=== PATIENT | female | born 1980 | race Caucasian/White ===

== ENCOUNTER 2022-04-07 14:08 | Inpatient (IN) ==
--- NOTE | 2022-04-07 14:39 | Emergency Department Note ---
Impression & Plan Lower back pain, Thrombocytopenia, Nausea & vomiting ED Provider Note NAME: DANA CAST AGE: 42 SEX: F : 1980 ARRIVES VIA: Ambulance INFORMANT: Patient, ED PROVIDER(S): Dandy Chapin MD CHIEF COMPLAINT: Back pain MEDICAL DECISION MAKING: Patient presents due to concern for back pain. The patient did have CT of the lumbar spine and IV was placed and patient was ordered IV Solu-Medrol Toradol and morphine. The patient upon reassessment did not have significant improvement in symptoms with the patient was ordered 1 of IV Dilaudid. The patient did have blood work completed. Patient does not have any significant red flag signs for cauda equina. An MRI of the lumbar spine was ordered. There is no current MRI team available and given this delay I did discuss with the patient that we could keep the patient for pain management but if the patient was able to get up and walk with comfort I thought this would be reasonable at this time. Patient does not have any evidence of cauda equina or weakness on exam. Patient was unable to get up and out of bed. Given this concern I did speak with the on-call hospitalist Dr. De La Vega and the patient was admitted to the medicine service. Patient has a white count of 11 with a normal H&H. Platelet count with mild thrombocytopenia 109. Kidney function is unremarkable but with prerenal azotemia. The patient did receive IV fluids. COVID-negative. Prior /Outside records reviewed: None Differential diagnosis: Musculoskeletal, disc herniation, fracture, metastatic disease, cord compression, discitis, sciatica, cauda equina, infection, aortic disease, renal colic, gastrointestinal, as well as other pathologies. Diagnostics, as interpreted by me: ECG: None Cardiac monitoring: An order was placed for continuous cardiac monitoring. The monitor shows a rate of 88 with sinus rhythm. Patient was placed on pulse oximetry Medical decision rules: None Imaging studies: See below HPI: Patient presents due to concern for back pain. The patient states that he has had it for approximately 3 days and describes it is in the lower lumbar and left paraspinal area with radiation down the left leg. The patient describes it as sharp and occasionally burning. Patient denies any issues with bowel or bladder incontinence or retention no saddle anesthesia. Patient states that she has been taking [id number]-[id number] medications including ibuprofen and Tylenol. The patient does take Tylenol this morning but did not have improvement in symptoms. The patient has had associated nausea and vomiting today secondary to the pain. Patient denies any inciting events and denies any recent overuse twisting turning feeling as though she had a pop or other cause. The patient denies any dysuria hematuria. No blood in the stools. PAST MEDICAL HISTORY: See Below PAST SURGICAL HISTORY: See Below SOCIAL HISTORY: See Below HOME MEDICATIONS: See Below ALLERGIES: See Below VITALS: See Below PHYSICAL EXAMINATION: GENERAL: NAD, wearing a mask, non-toxic. Wearing glasses. EYE EXAM: Normal conjunctiva. PERRL, no anisocoria and EOM's grossly intact w/o pain. NECK: Supple, no nuchal rigidity, no adenopathy, non-tender. No signs of meningismus. FROM of the neck with good chin to chest and neck extension. No stridor. LUNGS: Clear to auscultation. Normal chest wall mechanics. HEART: NSR, no MRG. ABDOMEN: Abdomen soft, non-tender, normo-active bowel sounds, no masses, no rebound or guarding. BACK: Mild left-sided and midline lumbar discomfort. SKIN: No rashes and no bruising. UPPER EXTREMITIES: Upper extremities are grossly normal. LOWER EXTREMITIES: Grossly normal, no edema. Positive straight leg raise left lower extremity. NEURO EXAM: A&O x3, cranial nerves II-XII grossly intact, normal speech, moves all 4 extremities. Past Med/Surg History Medical History Inflammatory arthritis Irritable bowel Lower back pain Surgical History No pertinent past surgical history Social History Smoking Status: Never smoker Preferred Language: Spanish Feels Safe at Home: Yes Allergies Allergies Allergy/AdvReac Type Severity Reaction Status Date / Time amoxicillin Allergy Intermediate RASH/VOMITI Verified 04/07/22 17:34 NG ciprofloxacin Allergy Intermediate Rash Verified 04/07/22 17:34 sulfamethoxazole Allergy Intermediate Rash Verified 04/07/22 17:34 [From Bactrim] trimethoprim [From Bactrim] Allergy Intermediate Rash Verified 04/07/22 17:34 Home Meds Home Medications Medication Instructions Recorded Confirmed cholecalciferol (vitamin D3) 50 2,000 unit PO DAILY 04/07/22 04/07/22 mcg (2,000 unit) tablet (Vitamin D3) cyclobenzaprine 10 mg tablet 10 mg PO TID PRN MUSCLE SPASMS 04/07/22 04/07/22 docusate sodium 100 mg capsule 300 mg PO BID 04/07/22 04/07/22 (Stool Softener) estradiol 0.01% (0.1 mg/gram) 1 appful vaginal 2XWK 04/07/22 04/07/22 vaginal cream folic acid 1 mg tablet 1 mg PO DAILY 04/07/22 04/07/22 gabapentin 300 mg capsule 300 mg PO TID 04/07/22 04/07/22 meloxicam 7.5 mg tablet 7.5 mg PO DAILY 04/07/22 04/07/22 methotrexate sodium 2.5 mg tablet See Rx Instructions .Route .COMPLEX 04/07/22 04/07/22 pantoprazole 40 mg tablet,delayed 40 mg PO QAM 04/07/22 04/07/22 release Results & Data (ED) Vital Signs Vital Signs - 24 hr 04/07/22 14:34 04/07/22 15:50 04/07/22 17:53 Temperature 36.9 C Temperature Source Oral Pulse Rate 104 H Pulse Rate [Finger] 87 100 H Pulse Rhythm [Finger] Regular Regular Pulse Strength [Finger] Normal Normal Respiratory Rate 16 20 18 Respiratory Effort / Characteristics Non-Labored Spontaneous Non-Labored Non-Labored Respiratory Depth Normal Normal Normal Respiratory Pattern Regular Regular Regular Blood Pressure 107/64 Blood Pressure [Right Arm] 110/68 119/66 Blood Pressure Mean 78 Blood Pressure Mean [Right Arm] 82 83 Blood Pressure Position Lying Pulse Oximetry 98 98 94 Oxygen Delivery Method Room Air Room Air Room Air Sepsis Recent Fever Within 48 Hours No Sepsis New/Unexplained Change in Mental Status No Sepsis Action Taken by Nursing No Action Required 04/07/22 14:54 Temperature Temperature Source Pulse Rate Pulse Rate [Finger] Pulse Rhythm [Finger] Pulse Strength [Finger] Respiratory Rate Respiratory Effort / Characteristics Respiratory Depth Respiratory Pattern Blood Pressure Blood Pressure [Right Arm] Blood Pressure Mean Blood Pressure Mean [Right Arm] Blood Pressure Position Pulse Oximetry 96 Oxygen Delivery Method Room Air Sepsis Recent Fever Within 48 Hours Sepsis New/Unexplained Change in Mental Status Sepsis Action Taken by Residential Medications Current Medication List: was personally reviewed by me Laboratory Data Attestation: I reviewed the patient's lab results. Result diagrams: 04/07/22 17:51 04/07/22 18:56 Lab Results 04/07/22 04/07/22 04/07/22 Range/Units 17:51 17:51 17:51 WBC 11.63 H (4.8-10.8) K/ul RBC 4.98 (3.93-5.22) M/uL Hgb 15.5 (12.0-16.0) g/dl Hct 43.9 (34.1-44.9) % MCV 88.2 (80.0-100.0) fL MCH 31.1 (25.0-34.0) pg MCHC 35.3 (32.0-36.0) g/dL RDW Std Deviation 40.4 (36.4-46.3) fL RDW Coeff of Clarissa 12.6 (11.5-14.5) % Plt Count 109 L (130-400) K/uL MPV 10.9 (9.4-12.3) fL Immature Gran % (Auto) 0.3 % Neut % (Auto) 94.8 % Lymph % (Auto) 3.7 % Bent % (Auto) 1.0 % Eos % (Auto) 0.0 % Baso % (Auto) 0.2 % Neut # (Auto) 11.03 H (1.4-6.5) K/uL Lymph # (Auto) 0.43 L (1.2-3.4) K/uL Bent # (Auto) 0.12 L (0.24-0.82) K/uL Eos # (Auto) 0.00 (0-0.50) K/uL Baso # (Auto) 0.02 (0-0.2) K/uL Immature Gran # (Auto) 0.03 H (0.00-0.02) K/uL Sodium TNP Potassium TNP Chloride 105 (98-107) mmol/L Carbon Dioxide 26 (21-32) mmol/L Anion Gap TNP BUN 13 (6-23) mg/dl Creatinine 0.49 L (0.6-1.2) mg/dl Est Cr Clr Drug Dosing 160.2 ml/min Est GFR ( Amer) 140.3 ml/min Est GFR (Non-Af Amer) 121.0 ml/min BUN/Creatinine Ratio 26.5 H (10-20) Glucose 114 H (70-99(Fasting)) mg/dl Calcium 9.6 (8.5-10.1) mg/dl SARS-CoV-2, RNA, NAAT NEGATIVE (NEGATIVE) 04/07/22 Range/Units 18:56 WBC (4.8-10.8) K/ul RBC (3.93-5.22) M/uL Hgb (12.0-16.0) g/dl Hct (34.1-44.9) % MCV (80.0-100.0) fL MCH (25.0-34.0) pg MCHC (32.0-36.0) g/dL RDW Std Deviation (36.4-46.3) fL RDW Coeff of Clarissa (11.5-14.5) % Plt Count (130-400) K/uL MPV (9.4-12.3) fL Immature Gran % (Auto) % Neut % (Auto) % Lymph % (Auto) % Bent % (Auto) % Eos % (Auto) % Baso % (Auto) % Neut # (Auto) (1.4-6.5) K/uL Lymph # (Auto) (1.2-3.4) K/uL Bent # (Auto) (0.24-0.82) K/uL Eos # (Auto) (0-0.50) K/uL Baso # (Auto) (0-0.2) K/uL Immature Gran # (Auto) (0.00-0.02) K/uL Sodium 140 Potassium 3.9 Chloride (98-107) mmol/L Carbon Dioxide (21-32) mmol/L Anion Gap BUN (6-23) mg/dl Creatinine (0.6-1.2) mg/dl Est Cr Clr Drug Dosing ml/min Est GFR ( Amer) ml/min Est GFR (Non-Af Amer) ml/min BUN/Creatinine Ratio (10-20) Glucose (70-99(Fasting)) mg/dl Calcium (8.5-10.1) mg/dl SARS-CoV-2, RNA, NAAT (NEGATIVE) Administered Medications Discontinued Medications Hydromorphone HCl (Hydromorphone Inj 1 Mg/Ml Syringe) 1 mg IV NOW STA Stop: 04/07/22 17:30 Last Admin: 04/07/22 17:46 Dose: 1 mg Documented By: LEONORA Sodium Chloride (Nss 1000ml) 1,000 mls @ 999 mls/hr IV .Q1H1M ONE Stop: 04/07/22 15:55 Last Infusion: 04/07/22 16:47 Dose: 0 mls/hr Documented By: Admin: 04/07/22 15:21 Dose: 999 mls/hr Documented By: OAM Ketorolac Tromethamine (Ketorolac Tromethamine 15 Mg/Ml Vial) 10 mg IV ONE STA Stop: 04/07/22 14:55 Last Admin: 04/07/22 15:21 Dose: 10 mg Documented By: OAHeydi Methylprednisolone (Methylprednisolone 125 Mg/2 Ml Vial) 125 mg IV NOW STA Stop: 04/07/22 14:55 Last Admin: 04/07/22 15:21 Dose: 125 mg Documented By: OAM Ondansetron HCl (Ondansetron Inj 2 Mg/Ml 2 Ml Vial) 4 mg IV NOW STA Stop: 04/07/22 14:55 Last Admin: 04/07/22 15:21 Dose: 4 mg Documented By: LEONORA Imaging Data Radiologist's Impression: Lumbar Spine CT 04/07/22 14:[address] DOSE: 640.55 mGy.cm HISTORY: Low back pain. Left-sided sciatica. TECHNIQUE: Multiaxial CT images of the lumbar spine were performed and reformatted in the sagittal and coronal plane without the use of contrast. A dose lowering technique was utilized adhering to the principles of ALARA. COMPARISON: None. FINDINGS: No fracture or subluxation within the lumbar spine. Mild disc space narrowing at L5-S1. The sacrum appears intact. Small broad-based posterior disc bulge at L5-S1 without significant central canal narrowing. Paravertebral soft tissues are unremarkable. IMPRESSION: 1. No fractures within the lumbar spine. 2. Mild degenerative disc disease at L5-S1 without significant central canal narrowing. ACT 112: Negative or not required by law. Electronically signed by: Campos Pena M.D. 04/07/2022 3:50 PM Discharge Plan Visit Data Chief Complaint: Back Injury/Pain ED Provider: Dandy Chapin Discharge Problem: Lower back pain, Thrombocytopenia, Nausea & vomiting Patient Disposition: Admitted As Inpatient Discharge Instructions Interventions: ED Discharge Assessment Last Done: 04/07/22 19:42
[2022-04-07] MEDS ORDERED: KETOROLAC TROMETHAMINE 15 MG/ML VIAL IV STA (14:54)
[2022-04-07] MEDS ORDERED: ONDANSETRON INJ 2 MG/ML 2 ML VIAL IV STA (14:54)
[2022-04-07] MEDS ORDERED: methylPREDNISolone 125 MG/2 ML VIAL IV STA (14:54)
[2022-04-07] MEDS ORDERED: SODIUM CHLORIDE 0.9% 1000ML 1,000 ML IV ONE (14:55)
--- NOTE | 2022-04-07 15:53 | CT Scan Report ---
LUMBAR SPINE CT CT DOSE: 640.55 mGy.cm HISTORY: Low back pain. Left-sided sciatica. TECHNIQUE: Multiaxial CT images of the lumbar spine were performed and reformatted in the sagittal an d coronal plane without the use of contrast. A dose lowering technique was utilized adhering to the principles of ALARA. COMPARISON: None. FINDINGS: No fracture or subluxation within the lumbar spine. Mild disc space narrowing at L5-S1. The sacrum appears intact. Small broad-based posterior disc bulge at L5-S1 without significant central c anal narrowing. Paravertebral soft tissues are unremarkable. IMPRESSION: 1. No fractures within the lumbar spine. 2. Mild degenerative disc disease at L5-S1 without significant central canal narrowing. ACT 112: Negative or not required by law. Electronically signed by: Campos Pena M.D. 04/07/2022 3:50 PM
[2022-04-07] MEDS ORDERED: HYDROmorphone INJ 1 MG/ML SYRINGE IV STA (17:29)
[2022-04-07 18:17] LABS: Hematocrit (blood only) 43.9 % (34.1-44.9); Hemoglobin 15.5 g/dl (12.0-16.0); Mean Corpuscular Hemoglobin 31.1 pg (25.0-34.0); Mean Corpuscular Hgb Conc 35.3 g/dL (32.0-36.0); Mean Corpuscular Volume 88.2 fL (80.0-100.0); Mean Platelet Volume 10.9 fL (9.4-12.3); Platelet Count 109 K/uL (130-400); RDW Coefficient of Variation 12.6 % (11.5-14.5); RDW Standard Deviation 40.4 fL (36.4-46.3); Red Blood Count 4.98 M/uL (3.93-5.22); White Blood Count 11.63 K/ul (4.8-10.8)
[2022-04-07 18:25] LABS: Basophils # (auto) 0.02 K/uL (0-0.2); Basophils % (auto) 0.2 %; Immature Granulocytes # (auto) 0.03 K/uL (0.00-0.02); Immature Granulocytes % (auto) 0.3 %; Lymphocytes # (auto) 0.43 K/uL (1.2-3.4); Lymphocytes % (auto) 3.7 %; Monocytes # (auto) 0.12 K/uL (0.24-0.82); Neutrophils # (auto) 11.03 K/uL (1.4-6.5); Neutrophils % (auto) 94.8 %
[2022-04-07 18:26] LABS: BUN Creatinine Ratio 26.5 (10-20); Blood Urea Nitrogen 13 mg/dl (6-23); Calcium 9.6 mg/dl (8.5-10.1); Carbon Dioxide 26 mmol/L (21-32); Chloride 105 mmol/L (98-107); Creatinine Clr Calc Pharmacy 160.2 ml/min; Est GFR (African American) 140.3 ml/min; Glucose 114 mg/dl (70-99(Fasting))
--- NOTE | 2022-04-07 19:13 | History & Physical Report ---
Date of Service April 07, 2022 Assessment & Plan (1) Lower back pain: Plan: Patient has lower back pain which is not completely radicular. Reportedly has a lumbar disc disease. 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 Its mostly related in her lower back it can at times radiate to her foot mostly on the lateral edge most of the time it stays in the upper leg. She is attempted to quell her pain emergency department with with little success. Her pain is definitely not reproducible with straight leg raising and has variable somatic components. She reportedly comes with a previous disc herniation at L3-4 L4-[address] scan in the emergency department showed degenerative disc disease L5-S1. She reportedly has inflammatory arthritis and thinks methotrexate weekly and sees a burial vault setter in [place]. She states that the morphine did not work but the Dilaudid was better. Allergies Allergy/AdvReac Type Severity Reaction Status Date / Time amoxicillin Allergy Intermediate RASH/VOMITI Verified 04/07/22 17:34 NG ciprofloxacin Allergy Intermediate Rash Verified 04/07/22 17:34 sulfamethoxazole Allergy Intermediate Rash Verified 04/07/22 17:34 [From Bactrim] trimethoprim [From Bactrim] Allergy Intermediate Rash Verified 04/07/22 17:34 Home Medications Medication Instructions Recorded Confirmed Type cholecalciferol (vitamin D3) 50 2,000 unit PO DAILY 04/07/22 04/07/22 History mcg (2,000 unit) tablet (Vitamin D3) cyclobenzaprine 10 mg tablet 10 mg PO TID PRN MUSCLE SPASMS 04/07/22 04/07/22 History docusate sodium 100 mg capsule 300 mg PO BID 04/07/22 04/07/22 History (Stool Softener) estradiol 0.01% (0.1 mg/gram) 1 appful vaginal 2XWK 04/07/22 04/07/22 History vaginal cream folic acid 1 mg tablet 1 mg PO DAILY 04/07/22 04/07/22 History gabapentin 300 mg capsule 300 mg PO TID 04/07/22 04/07/22 History meloxicam 7.5 mg tablet 7.5 mg PO DAILY 04/07/22 04/07/22 History methotrexate sodium 2.5 mg tablet See Rx Instructions .Route .COMPLEX 04/07/22 04/07/22 History pantoprazole 40 mg tablet,delayed 40 mg PO QAM 04/07/22 04/07/22 History release Past Med/Surg History Medical History (Updated 04/07/22 @ 19:21 by Steve De La Vega MD) Irritable bowel Lower back pain Social History Smoking Status: Never smoker Preferred Language: Filipino Feels Safe at Home: Yes Review of Systems Review of Systems: Moderate distress and fatigue no headache, no visual changes no speech or swallowing issues no chest pain, pressure or palpitations no shortness of breath, cough or wheezes no abdominal pain, nausea or vomiting, variable diarrhea & constipation no dysuria, hematuria or frequency no focal joint pain or swelling Lower back pain, mostly left-sided with occasional left-sided radiation no bruising, bleeding or rashes no focal signs of weakness or numbness or altered sensation no complaints of anxiety or depression.. Physical Exam Physical Exam: The patient appeared well nourished and normally developed. Vital signs as documented. Head exam is normocephalic atraumatic Neck is without JVD, thyromegaly, or carotid bruits. Lungs are clear to auscultation, no focal loss of breath sounds Cardiac exam, Rhythm is regular.. No murmurs, rubs or gallops. Abdominal exam reveals normal bowel sounds, soft non tender, no masses Extremities are nonedematous and both pedal pulses are present Reproducible point tenderness in the lumbar spine mostly left side chest was tenderness to the left calf Neurologic exam is alert and oriented, no focal loss of strength or sensation No pain with straight leg raising strength is 5/5 and equal bilaterally no neurological deficits Skin is without bruises or rashes Psychologically is without concerns for anxiety or depression.. Results & Data Results & Data ([facility]) Vital Signs (Past 12 Hours) Vital Signs Temp Pulse Pulse Resp BP BP Pulse Ox 04/07/22 14:54 96 04/07/22 17:53 100 H 18 119/66 94 04/07/22 15:50 87 20 110/68 98 04/07/22 14:34 98.4 F 104 H 16 107/64 98 O2 Del Method 04/07/22 14:54 Room Air 04/07/22 17:53 Room Air 04/07/22 15:50 Room Air 04/07/22 14:34 Room Air Diagnostic Findings Lumbar Spine CT 04/07/22 14:[address] DOSE: 640.55 mGy.cm HISTORY: Low back pain. Left-sided sciatica. TECHNIQUE: Multiaxial CT images of the lumbar spine were performed and reformatted in the sagittal and coronal plane without the use of contrast. A dose lowering technique was utilized adhering to the principles of ALARA. COMPARISON: None. FINDINGS: No fracture or subluxation within the lumbar spine. Mild disc space narrowing at L5-S1. The sacrum appears intact. Small broad-based posterior disc bulge at L5-S1 without significant central canal narrowing. Paravertebral soft tissues are unremarkable. IMPRESSION: 1. No fractures within the lumbar spine. 2. Mild degenerative disc disease at L5-S1 without significant central canal narrowing. ACT 112: Negative or not required by law. Electronically signed by: Campos Pena M.D. 04/07/2022 3:50 PM Code Status & VTE Plan VTE Prophylaxis Plan VTE Prophylaxis will be ordered: Yes PG Care Time/CCT Total # of Minutes Spent Total Time Spent with Patient: Total time spent is greater than 50% in coordination of care (as documented) at patient's floor/unit and/or counseling patient: Coding Level of Care Code INT OBSERVATION CARE 50M LVL 2 Diagnoses Lower back pain M54.50 Inflammatory arthritis M19.90 Irritable bowel K58.9
[2022-04-07 19:26] LABS: Potassium 3.9 mmol/L (3.5-5.1)
[2022-04-07] MEDS ORDERED: ONDANSETRON INJ 2 MG/ML 2 ML VIAL IV PRN (20:21)
[2022-04-07] MEDS ORDERED: LORazepam 2 MG/1 ML VIAL IV ONE (20:21)
[2022-04-07] MEDS ORDERED: HYDROmorphone INJ 1 MG/ML SYRINGE IV PRN (20:21)
[2022-04-07] MEDS ORDERED: ALUMINUM/MAGNESIUM SUSP 30 ML UDC PO PRN (20:21)
[2022-04-07] MEDS: LIDOCAINE 5% 1 PATCH TD SCH (20:58)
[2022-04-07] MEDS: DOCUSATE SODIUM 100 MG CAP PO SCH (20:59)
[2022-04-07] MEDS: GABAPENTIN 300 MG CAP PO SCH (20:59)
[2022-04-07] MEDS: ACETAMINOPHEN 500 MG TAB PO SCH (21:00)
[2022-04-07] MEDS: oxyCODONE HCL IR 5 MG TAB (IMMEDIATE RELEASE) PO PRN (21:04)
[2022-04-07] MEDS ORDERED: LORazepam 2 MG/1 ML VIAL ONE (23:05)
[2022-04-07] MEDS: HYDROmorphone INJ 0.5 MG/0.5 ML SYR IV PRN (23:11)
--- NOTE | 2022-04-08 08:26 | Magnetic Resonance Report ---
MRI OF THE LUMBAR SPINE WITHOUT CONTRAST CLINICAL HISTORY: Radicular pain. Low back pain radiating into left lower extremity. COMPARISON STUDY: Lumbar spine radiographs May 05, [address] April 07, 2022. TECHNIQUE: Utilizing a 1.5 Yamileth magnet and dedicated coil, multiplanar, multiecho imaging of the [facility] spine was performed without IV contrast. FINDINGS: For purposes of numbering on this exam, the L5-S1 disc space is assigned to axial and 28 of 30. Align ment of the lumbar spine is anatomic. Vertebral body heights are maintained. There is no marrow edema or marrow replacement. No intracanalicular mass or fluid collection. Conus 20 minutes at the inferio r L1 level. Paravertebral soft tissues are unremarkable. There is a small right paracentral disc prot rusion at T10-T11. L1-2: Central canal and neural foramen are patent. L2-3: Central canal and neural foramen are patent. L3-4: Central canal and neural foramen are patent. L4-5: There is a small central disc protrusion with annular tear. The central canal is patent. Neural foramen are patent. L5-S1: Note is made of a moderate size left paracentral disc extrusion which results in severe narrow ing of the left lateral recess with posterior displacement of the descending left S1 nerve root. Ther e is no significant central canal stenosis. Right neural foramen is patent. There is mild narrowing o f the left neural foramen. IMPRESSION: 1. Moderate size left paracentral disc extrusion at L5-S1 which results in severe narrowing of the le ft lateral recess with mass effect upon the descending left S1 nerve root. This could be correlated w ith left S1 radiculopathy. 2. No central canal stenosis. 3. Tiny central disc protrusion with annular tear at L4-L5. ACT 112: Negative or not required by law. Electronically signed by: Joaquín Pope M.D. 04/08/2022 8:25 AM
[2022-04-08] MEDS: oxyCODONE HCL IR 5 MG TAB (IMMEDIATE RELEASE) PO PRN ×2 (08:42→16:40)
[2022-04-08] MEDS: FOLIC ACID 1 MG TAB PO SCH (08:42)
[2022-04-08] MEDS: PANTOprazole 40 MG TAB PO SCH (08:42)
[2022-04-08] MEDS: dexAMETHasone 4 MG TAB PO SCH (08:42)
[2022-04-08] MEDS: ACETAMINOPHEN 500 MG TAB PO SCH ×3 (08:42→21:14)
[2022-04-08] MEDS: GABAPENTIN 300 MG CAP PO SCH ×3 (08:43→21:13)
[2022-04-08] MEDS: SENNA 8.6 MG TAB PO SCH (08:43)
[2022-04-08] MEDS: DOCUSATE SODIUM 100 MG CAP PO SCH ×2 (08:43→21:13)
[2022-04-08] MEDS: CHOLECALCIFEROL 1,000 UNITS 25 MCG TAB PO SCH (08:43)
[2022-04-08] MEDS: MELOXICAM 7.5 MG TAB PO SCH (08:43)
[2022-04-08] MEDS ORDERED: POLYETHYLENE (MIRALAX) 17 GM PACK PO PRN (11:11)
[2022-04-08] MEDS: HYDROmorphone INJ 0.5 MG/0.5 ML SYR IV PRN ×2 (13:18→20:23)
--- NOTE | 2022-04-08 15:27 | Orthopedic Consultation ---
Date of Consultation April 08, 2022 Assessment & Plan (1) Lumbar disc herniation with radiculopathy: Assessment L5-S1 disc herniation with fragment migrating caudally and significant displacement of the traversing S1 nerve root. Plan at this time at length discussion today with the patient and her reviewing her MRI findings and clinical presentation. She does have the options of continued medical management possible trial of epidural injections versus surgical invention. Surgery would require a lumbar laminotomy L5-S1 on the left with excision of herniated free fragments. Risk benefits pros cons alternatives were in detail. Risk include but not limited to anesthesia blindness stroke paralysis nerve damage blood loss requiring transfusion infection requiring reoperation benefits would hopefully marked improvement of radiculopathy. She does run the risk of recurrent disc herniation and I described what this would mean. At this point she is severely uncomfortable is undergone extensive course of nonoperative care in the past and would like to pursue surgical invention. We will make her n.p.o. after midnight we will hope for surgery soon as possible. History of Present Illness Reason for Consultation: Back and left leg pain Attending Physician: Leonila Burger, DO History of Present Illness This is a very pleasant 42-year-old female who presents yesterday with severe back and left leg pain. She is unable to ambulate without marked discomfort. Subsequently she came to the ER for help. She has a history of some back issues in August of this year. She had back pain with some modest left sciatica. This been managed medically with Neurontin and muscle relaxers and has been working reasonably well. She had not sought injections. She had undergone physical therapy and fortunately a few days ago the symptoms became much worse. Pain is involving the left buttock posterior thigh extending into the calf and lateral foot. Any activity creates severe pain. The only relief she gets is through IV Dilaudid. She is most comfortable lying supine. The right lower extremity is asymptomatic. She denies any loss of bowel or bladder control. Allergies Allergy/AdvReac Type Severity Reaction Status Date / Time amoxicillin Allergy Intermediate RASH/VOMITI Verified 04/07/22 17:34 NG ciprofloxacin Allergy Intermediate Rash Verified 04/07/22 17:34 sulfamethoxazole Allergy Intermediate Rash Verified 04/07/22 17:34 [From Bactrim] trimethoprim [From Bactrim] Allergy Intermediate Rash Verified 04/07/22 17:34 Home Medications Medication Instructions Recorded Confirmed Type cholecalciferol (vitamin D3) 50 2,000 unit PO DAILY 04/07/22 04/07/22 History mcg (2,000 unit) tablet (Vitamin D3) cyclobenzaprine 10 mg tablet 10 mg PO TID PRN MUSCLE SPASMS 04/07/22 04/07/22 History docusate sodium 100 mg capsule 300 mg PO BID 04/07/22 04/07/22 History (Stool Softener) estradiol 0.01% (0.1 mg/gram) 1 appful vaginal 2XWK 04/07/22 04/07/22 History vaginal cream folic acid 1 mg tablet 1 mg PO DAILY 04/07/22 04/07/22 History gabapentin 300 mg capsule 300 mg PO TID 04/07/22 04/07/22 History meloxicam 7.5 mg tablet 7.5 mg PO DAILY 04/07/22 04/07/22 History methotrexate sodium 2.5 mg tablet See Rx Instructions .Route .COMPLEX 04/07/22 04/07/22 History pantoprazole 40 mg tablet,delayed 40 mg PO QAM 04/07/22 04/07/22 History release Patient History Medical History Inflammatory arthritis Irritable bowel Lower back pain Surgical History No pertinent past surgical history Social History Smoking Status: Never smoker Hx Alcohol Use: Yes Hx Substance Use: No Preferred Language: Indian Communication Ability: Effective Field Education Director Required: No Beliefs That Will Affect Care: Jainism Jainism Beliefs: Baptist (pt denies needing any special care/diet) Current Living Situation: Spouse Feels Safe at Home: Yes Assistive Devices: Cane and Glasses Physical Exam Physical Exam: Patient is in bed. She is somewhat tearful secondary to pain. She exhibits severe tension signs with straight leg raising on the left negative on the right. She has a plus 5 out of 5 bilateral dorsiflexion extensor pollicis longus with a 4/5 left plantar flexion to 5 or 5 on the right. Sensory appears to be diminished in the left compared to the right. Results & Data ([facility]) Vital Signs (Past 12 Hours) Vital Signs Temp Pulse Resp BP Pulse Ox O2 Del Method 04/08/22 08:00 36.6 C 89 20 103/68 97 Room Air
--- NOTE | 2022-04-08 15:28 | Hospitalist Progress Note ---
Date of Service April 08, 2022 Assessment & Plan (1) Lower back pain: Plan: Patient has radicular lower back pain and MRI revealed lumbar disc herniation with severe narrowing of the left lateral recess with posterior displacement of the descending left S1 nerve root Orthopedic surgery consulted and plan for surgery NPO Continue pain medications (2) Inflammatory arthritis: Plan: Patient typically takes methotrexate on Fridays sees a inside sales lead in [place] currently the methotrexate is on hold and steroids were initiated (3) Irritable bowel: Plan: Patient's irritable bowel now she is giving opiates we will continue her cathartic agents Added miralax as needed Discussed good bowel regimen Plan Continue DVT prevention with SCDs and teds at this time Admission and Anticipated Discharge Date Admission Date: April 07, 2022 Supervising Physician Co-Signing Physician Notes I did not personally see or examine this patient. I reviewed all posadas points and charts with TOMMY Charles and agree with all assessment and plan except as described here: no changes Subjective Patient is awake in bed tearful and nervous about back. States currently mild pain and states dilaudid helps. She states she still is having left lower back pain that radiates down her left leg, behind the knee and to the lateral side of her left foot. She states she has some mild sensation deficits in her left foot. She states sometimes she feels a burning sensation or a sensation of a "hair" on her foot but nothing is there. She denies any complete anesthesia or any paralysis. She denies any incontinence of bowel or bladder. She tells me that she has some mild stress incontinence but not complete loss of control of urine. She has a history of inflammatory arthritis (not RA) diagnosed almost 1 year ago and treated with weekly methotrexate. She denies any injury or trauma. Review of Systems Constitutional: no fever, no chills, no anorexia, no weight loss and no weight gain Respiratory: no cough, no chest congestion and no dyspnea Cardiovascular: no chest pain, no dyspnea, no syncope and no edema Gastrointestinal: no abdominal pain, no nausea and no vomiting Genitourinary: no dysuria, no difficulty urinating and no flank pain mild stress urinary incontinence Musculoskeletal: + back pain, + radicular pain and + problem reported; no neck pain, no loss of height, no swelling and no muscle atrophy Integumentary: no rash, no lesions and no new lesions Neurologic: + loss of sensation, + numbness and + radiating pain; no falls and no paralysis Psychiatric: no hopelessness, no change in appetite and no suicidal ideation Physical Exam Constitutional: WD/WN, vitals as above Neck: trachea midline, no thyromegaly Respiratory: normal respiratory effort, lungs clear to auscultation Cardiovascular: RRR, no murmur, no edema Gastrointestinal (Abdomen): normal bowel sounds, soft, nontender, no hepatosplenomegaly Musculoskeletal: DP and PT pulses +2 symmetric mild Pain/stiffness with SLR on left Mild decreased strength on left to dorsiflexion +4/5 on left and +5/5 on right with equal strength to extension Skin: no rashes, warm and dry Results & Data Results & Data ([facility]) Vital Signs (Past 12 Hours) Vital Signs Temp Pulse Resp BP Pulse Ox O2 Del Method 04/08/22 08:00 36.6 C 89 20 103/68 97 Room Air Laboratory Results Abnormal lab results 04/07/22 04/07/22 Range/Units 17:51 17:51 WBC 11.63 H (4.8-10.8) K/ul Plt Count 109 L (130-400) K/uL Neut # (Auto) 11.03 H (1.4-6.5) K/uL Lymph # (Auto) 0.43 L (1.2-3.4) K/uL [place] # (Auto) 0.12 L (0.24-0.82) K/uL Immature Gran # (Auto) 0.03 H (0.00-0.02) K/uL Creatinine 0.49 L (0.6-1.2) mg/dl BUN/Creatinine Ratio 26.5 H (10-20) Glucose 114 H (70-99(Fasting)) mg/dl Diagnostic Findings Lumbar Spine CT 04/07/22 14:[address] DOSE: 640.55 mGy.cm HISTORY: Low back pain. Left-sided sciatica. TECHNIQUE: Multiaxial CT images of the lumbar spine were performed and reformatted in the sagittal and coronal plane without the use of contrast. A dose lowering technique was utilized adhering to the principles of ALARA. COMPARISON: None. FINDINGS: No fracture or subluxation within the lumbar spine. Mild disc space narrowing at L5-S1. The sacrum appears intact. Small broad-based posterior disc bulge at L5-S1 without significant central canal narrowing. Paravertebral soft tissues are unremarkable. IMPRESSION: 1. No fractures within the lumbar spine. 2. Mild degenerative disc disease at L5-S1 without significant central canal narrowing. ACT 112: Negative or not required by law. Electronically signed by: Campos Pena M.D. 04/07/2022 3:50 PM Lumbar Spine MRI 04/07/22 17:29 MRI OF THE LUMBAR SPINE WITHOUT CONTRAST CLINICAL HISTORY: Radicular pain. Low back pain radiating into left lower extremity. COMPARISON STUDY: Lumbar spine radiographs May 05, [address] April 07, 2022. TECHNIQUE: Utilizing a 1.5 Yamileth magnet and dedicated coil, multiplanar, multiecho imaging of the lumbar spine was performed without IV contrast. FINDINGS: For purposes of numbering on this exam, the L5-S1 disc space is assigned to axial and 28 of 30. Alignment of the lumbar spine is anatomic. Vertebral body heights are maintained. There is no marrow edema or marrow replacement. No i ntracanalicular mass or fluid collection. Conus 20 minutes at the inferior L1 level. Paravertebral soft tissues are unremarkable. There is a small right paracentral disc protrusion at T10-T11. L1-2: Central canal and neural foramen are patent. L2-3: Central canal and neural foramen are patent. L3-4: Central canal and neural foramen are patent. L4-5: There is a small central disc protrusion with annular tear. The central canal is patent. Neural foramen are patent. L5-S1: Note is made of a moderate size left paracentral disc extrusion which results in severe narrowing of the left lateral recess with posterior displacement of the descending left S1 nerve root. There is no significant central canal stenosis. Right neural foramen is patent. There is mild narrowing of the left neural foramen. IMPRESSION: 1. Moderate size left paracentral disc extrusion at L5-S1 which results in severe narrowing of the left lateral recess with mass effect upon the descending left S1 nerve root. This could be correlated with left S1 radiculopathy. 2. No central canal stenosis. 3. Tiny central disc protrusion with annular tear at L4-L5. ACT 112: Negative or not required by law. Electronically signed by: Joaquín Pope M.D. 04/08/2022 8:25 AM PG Care Time/CCT Total # of Minutes Spent Total Time Spent with Patient: Total time spent is greater than 50% in coordination of care (as documented) at patient's floor/unit and/or counseling patient: Coding Level of Care Code 15295 Subseq Hosp Care Lvl 3 Diagnoses Lower back pain M54.42 Back pain laterality: left Chronicity: acute Sciatica laterality: sciatica of left side Sciatica presence: with sciatica Inflammatory arthritis M19.90 Irritable bowel K58.9 (1) Lower back pain Back pain laterality: left Chronicity: acute Sciatica laterality: sciatica of left side Sciatica presence: with sciatica Qualified Code(s): M54.42 - Lumbago with sciatica, left side
[2022-04-08] MEDS: LIDOCAINE 5% 1 PATCH TD SCH (21:14)
[2022-04-09] MEDS: HYDROmorphone INJ 0.5 MG/0.5 ML SYR IV PRN ×3 (07:21→22:18)
--- NOTE | 2022-04-09 08:05 | Hospitalist Progress Note ---
Date of Service April 09, 2022 Assessment & Plan (1) Lower back pain: Plan: Patient has radicular lower back pain and MRI revealed lumbar disc herniation with severe narrowing of the left lateral recess with posterior displacement of the descending left S1 nerve root Orthopedic surgery consulted and plan for surgery 04/10 Patient has been NPO Continue pain medications (2) Inflammatory arthritis: Plan: Follows with real estate clerk in [place] Methotrexate on hold (last dose was 04/05/22) Currently on Dexamethasone 4mg daily Continue Daily Meloxicam (3) Irritable bowel: Plan: Patient has a hx of IBS She is currently NPO for surgery Has Colace BID, Senokot and miralax as needed Discussed good bowel regimen Plan Continue DVT prevention with SCDs and teds at this time Admission and Anticipated Discharge Date Admission Date: April 07, 2022 Supervising Physician Co-Signing Physician Notes I did not personally see or examine this patient. I reviewed all posadas points and charts with TOMMY Charles and agree with all assessment and plan except as described here: no changes Subjective Patient is awake laying in bed. She is NPO for surgery later today. She denies any chest pain, SOB, dyspnea. She denies any abdominal pain, nausea or vomiting. She has not had a BM since admission. She states if she is not up and moving her back pain is manageable. She states if she lays on a certain angle her numbness in her left foot feels better. She is anxious but ready for the surgery. She tells me that she feels her pain is adequately being managed. Review of Systems Constitutional: no fever, no chills, no anorexia, no weight loss and no weight gain Respiratory: no cough, no chest congestion and no dyspnea Cardiovascular: no chest pain, no dyspnea, no syncope and no edema Gastrointestinal: no abdominal pain, no nausea and no vomiting Genitourinary: no dysuria, no difficulty urinating and no flank pain mild stress urinary incontinence Musculoskeletal: + back pain, + radicular pain and + problem reported; no neck pain, no loss of height, no swelling and no muscle atrophy Integumentary: no rash, no lesions and no new lesions Neurologic: + loss of sensation, + numbness and + radiating pain; no falls and no paralysis Psychiatric: no hopelessness, no change in appetite and no suicidal ideation Hematologic / Lymphatic: no easy bleeding, no coagulopathy, no lymphadenopathy and no unexplained weight loss Physical Exam Constitutional: WD/WN, vitals as above Neck: trachea midline, no thyromegaly Respiratory: normal respiratory effort, lungs clear to auscultation Cardiovascular: RRR, no murmur, no edema Gastrointestinal (Abdomen): normal bowel sounds, soft, nontender, no hepatosplenomegaly Skin: no rashes, warm and dry Results & Data Results & Data ([facility]) Vital Signs (Past 12 Hours) Vital Signs Temp Pulse Pulse Resp BP Pulse Ox O2 Del Method 04/09/22 07:11 36.5 C 78 16 120/77 99 Room Air 04/08/22 22:58 36.7 C 90 18 120/76 97 Room Air Laboratory Results Abnormal lab results 04/09/22 Range/Units 08:55 Creatinine 0.55 L (0.6-1.2) mg/dl PG Care Time/CCT Total # of Minutes Spent Total Time Spent with Patient: Total time spent is greater than 50% in coordination of care (as documented) at patient's floor/unit and/or counseling patient: Coding Level of Care Code 32136 SUB INP/OBS CARE 2/35MIN Diagnoses Lower back pain M54.42 Back pain laterality: left Chronicity: acute Sciatica laterality: sciatica of left side Sciatica presence: with sciatica Inflammatory arthritis M19.90 Irritable bowel K58.9 (1) Lower back pain Back pain laterality: left Chronicity: acute Sciatica laterality: sciatica of left side Sciatica presence: with sciatica Qualified Code(s): M54.42 - Lumbago with sciatica, left side
[2022-04-09] MEDS: GABAPENTIN 300 MG CAP PO SCH ×3 (08:45→22:16)
[2022-04-09] MEDS: CHOLECALCIFEROL 1,000 UNITS 25 MCG TAB PO SCH (08:45)
[2022-04-09] MEDS: dexAMETHasone 4 MG TAB PO SCH (08:45)
[2022-04-09] MEDS: FOLIC ACID 1 MG TAB PO SCH (08:45)
[2022-04-09] MEDS: ACETAMINOPHEN 500 MG TAB PO SCH ×3 (08:45→22:16)
[2022-04-09] MEDS: SENNA 8.6 MG TAB PO SCH (08:48)
[2022-04-09] MEDS: DOCUSATE SODIUM 100 MG CAP PO SCH ×2 (08:48→22:17)
[2022-04-09] MEDS: MELOXICAM 7.5 MG TAB PO SCH (08:48)
[2022-04-09 09:41] LABS: Hematocrit (blood only) 40.4 % (34.1-44.9); Hemoglobin 13.9 g/dl (12.0-16.0); Mean Corpuscular Hemoglobin 30.6 pg (25.0-34.0); Mean Corpuscular Hgb Conc 34.4 g/dL (32.0-36.0); Mean Platelet Volume 10.9 fL (9.4-12.3); Platelet Count 196 K/uL (130-400); RDW Coefficient of Variation 12.5 % (11.5-14.5); RDW Standard Deviation 40.6 fL (36.4-46.3); Red Blood Count 4.54 M/uL (3.93-5.22); White Blood Count 5.76 K/ul (4.8-10.8)
[2022-04-09] MEDS: PANTOprazole 40 MG TAB PO SCH (09:55)
[2022-04-09 10:03] LABS: Calcium 8.7 mg/dl (8.5-10.1); Creatinine Clr Calc Pharmacy 140.6 ml/min; Est GFR (Non-African American) 116.5 ml/min; Potassium 3.5 mmol/L (3.5-5.1)
[2022-04-09] MEDS ORDERED: ESTRADIOL 0.1 MG/24hrs TDSY TD SCH (16:15)
--- NOTE | 2022-04-09 17:06 | Anesthesiology Consultation ---
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 History Surgery Operation Date: 04/10/22 07:45 Proposed Procedures p L5-S1 on Left Lumbar Laminectomy - Eliezer Joya DO Height/Weight Height: 5 ft 4 in Weight: 83.4 kg Allergies Allergy/AdvReac Type Severity Reaction Status Date / Time amoxicillin Allergy Intermediate RASH/VOMITI Verified 04/07/22 17:34 NG ciprofloxacin Allergy Intermediate Rash Verified 04/07/22 17:34 sulfamethoxazole Allergy Intermediate Rash Verified 04/07/22 17:34 [From Bactrim] trimethoprim [From Bactrim] Allergy Intermediate Rash Verified 04/07/22 17:34 Medications Home Medications Medication Instructions Recorded Confirmed Last Taken cholecalciferol (vitamin D3) 50 2,000 unit PO DAILY 04/07/22 04/07/22 04/07/22 mcg (2,000 unit) tablet (Vitamin D3) cyclobenzaprine 10 mg tablet 10 mg PO TID PRN MUSCLE SPASMS 04/07/22 04/07/22 Unknown docusate sodium 100 mg capsule 300 mg PO BID 04/07/22 04/07/22 04/07/22 08:00 (Stool Softener) folic acid 1 mg tablet 1 mg PO DAILY 04/07/22 04/07/22 04/07/22 gabapentin 300 mg capsule 300 mg PO TID 04/07/22 04/07/22 04/07/22 08:00 meloxicam 7.5 mg tablet 7.5 mg PO DAILY 04/07/22 04/07/22 04/07/22 methotrexate sodium 2.5 mg tablet See Rx Instructions .Route .COMPLEX 04/07/22 04/07/22 04/05/22 pantoprazole 40 mg tablet,delayed 40 mg PO QAM 04/07/22 04/07/22 04/07/22 release estradiol 0.1 mg/24 hr semiweekly 1 topical 04/09/22 Unknown transdermal patch (Malinda) Active Medications Generic Name Dose Route Start Last Admin Trade Name Freq PRN Reason Stop Dose Admin Acetaminophen 1,000 mg 04/07/22 21:00 04/09/22 14:38 Acetaminophen 500 Mg Tab PO 05/07/22 20:59 Not Given TID HERNANDEZ Dexamethasone 4 mg 04/08/22 09:00 04/09/22 08:45 Dexamethasone 4 Mg Tab PO 05/08/22 08:59 4 mg DAILY HERNANDEZ Administration Docusate Sodium 300 mg 04/07/22 21:00 04/09/22 08:48 Docusate Sodium 100 Mg Cap PO 05/07/22 20:59 Not Given BID HERNANDEZ Folic Acid 1 mg 04/08/22 09:00 04/09/22 08:45 Folic Acid 1 Mg Tab PO 05/08/22 08:59 1 mg DAILY HERNANDEZ Administration Gabapentin 300 mg 04/07/22 21:00 04/09/22 14:42 Gabapentin 300 Mg Cap PO 05/07/22 20:59 300 mg TID HERNANDEZ Administration Hydromorphone HCl 0.5 mg 04/07/22 20:21 04/09/22 12:35 Hydromorphone Inj 0.5 Mg/0.5 Ml Syr IV 04/21/22 20:20 0.5 mg Q4H PRN Administration Pain Scale 4,5,6 Lidocaine 1 patch 04/07/22 21:00 04/08/22 21:14 Lidocaine 5% 1 Patch TD 05/07/22 20:59 1 patch HS HERNANDEZ Administration Meloxicam 7.5 mg 04/08/22 09:00 04/09/22 08:48 Meloxicam 7.5 Mg Tab PO 05/08/22 08:59 Not Given DAILY [facility] Miscellaneous 1 each 04/08/22 09:00 04/09/22 07:31 Remove Lidoderm Patch N/A 05/08/22 08:59 1 each DAILY HERNANDEZ Administration Oxycodone HCl 10 mg 04/07/22 20:21 04/08/22 16:40 Oxycodone Hcl Ir 5 Mg Tab (Immediate Release) PO 04/21/22 20:20 10 mg Q6H PRN Administration Moderate Pain 4-6/10 Pantoprazole Sodium 40 mg 04/08/22 09:00 04/09/22 09:55 Pantoprazole 40 Mg Tab PO 05/08/22 08:59 40 mg QAM HERNANDEZ Administration Polyethylene Glycol 17 gm 04/08/22 11:11 04/08/22 18:04 Polyethylene (Miralax) 17 Gm Pack PO 05/08/22 11:10 17 gm DAILY PRN Administration Constipation Sennosides 17.2 mg 04/08/22 09:00 04/09/22 08:48 Senna 8.6 Mg Tab PO 05/08/22 08:59 Not Given QAM HERNANDEZ Vitamin D 2,000 units 04/08/22 09:00 04/09/22 08:45 Cholecalciferol 1,000 Units 25 Mcg Tab PO 05/08/22 08:59 2,000 units DAILY HERNANDEZ Administration Past Medical History Medical History Inflammatory arthritis Irritable bowel Lower back pain Past Surgical History Surgical History No pertinent past surgical history Social History Smoking Status: Never smoker Do You Dip or Chew Tobacco: No Hx Alcohol Use: Yes alcohol intake frequency: holidays/special occasions only Hx Substance Use: No Physical Exam Vital Signs Last Vital Signs Temp 98.4 F 04/09/22 15:21 Pulse 89 04/09/22 15:21 Resp 16 04/09/22 15:21 BP 106/70 04/09/22 15:21 Pulse Ox 95 04/09/22 15:21 O2 Del Method 04/09/22 15:21 Testing Laboratory Results 04/09/22 08:55 04/09/22 08:55
[2022-04-09] MEDS: LIDOCAINE 5% 1 PATCH TD SCH (22:13)
[2022-04-10] MEDS: HYDROmorphone INJ 0.5 MG/0.5 ML SYR IV PRN (05:53)
[2022-04-10] MEDS ORDERED: LIDOCAINE 2% MPF LOCAL 5 ML VIAL INFIL ONE (07:02)
[2022-04-10] MEDS ORDERED: PROPOFOL IV EMULSION 10 MG/ML 20 ML VIAL IV ONE (07:02)
[2022-04-10] MEDS ORDERED: fentaNYL citrate 100 MCG/2 ML VIAL ONE (07:02)
[2022-04-10] MEDS ORDERED: ROCURONIUM BROMIDE 10 MG/ML 5 ML VIAL IV ONE (07:02)
[2022-04-10] MEDS ORDERED: MIDAZOLAM HCL 1 MG/ML 2ML VIAL ONE (07:02)
[2022-04-10] MEDS ORDERED: ceFAZolin 330 MG/ML 1 GM VIAL ONE (07:25)
[2022-04-10] MEDS ORDERED: BUPIVACAINE/EPINEPHRINE 0.25% 1:200,000 30 ML VIAL ONE (07:25)
[2022-04-10] MEDS ORDERED: DEXAMETHASONE SOD INJ 4 MG/ML VIAL ONE (07:30)
[2022-04-10] MEDS ORDERED: ONDANSETRON INJ 2 MG/ML 2 ML VIAL ONE (07:30)
--- NOTE | 2022-04-10 07:37 | History & Physical Bridge Note ---
Date of Service April 10, 2022 History & Physical Bridge Note I have examined the patient, reviewed the History & Physical and in the interval since the performance of the History & Physical I have noted the following changes of clinical significance: no changes noted Laminectomy L5-S1 on the left
[2022-04-10] MEDS ORDERED: ONDANSETRON INJ 2 MG/ML 2 ML VIAL IV PRN ×2 (07:39→10:01)
[2022-04-10] MEDS ORDERED: ATROPINE SULFATE 0.1 MG/ML 10ML SYR IV PRN (07:39)
[2022-04-10] MEDS ORDERED: PROMETHAZINE HCL 6.25 MG in SODIUM CHLORIDE 0.9% 50 ML IV PRN (07:39)
[2022-04-10] MEDS ORDERED: ePHEDrine sulfate 50 MG/ML AMP IV PRN (07:39)
[2022-04-10] MEDS ORDERED: CLINDAMYCIN 900 MG/D5W 50 ML BAG IV ONE (07:57)
--- NOTE | 2022-04-10 08:11 | Hospitalist Progress Note ---
Date of Service April 10, 2022 Assessment & Plan (1) Lumbar disc herniation with radiculopathy: Plan: Surgery today - Laminectomy L5-S1 on the Left with excision of herniated free fragments (2) Lower back pain: Plan: Patient had radicular lower back pain and MRI revealed lumbar disc herniation with severe narrowing of the left lateral recess with posterior displacement of the descending left S1 nerve root Orthopedic surgery consulted taken to the OR this AM Continue pain medications (3) Inflammatory arthritis: Plan: Follows with machine gunner in [place] Methotrexate on hold (last dose was 04/05/22) Currently on Dexamethasone 4mg daily Continue Daily Meloxicam (4) Irritable bowel: Plan: Patient has a hx of IBS She is currently tolerating regular diet Has Colace BID, Senokot and miralax as needed Discussed good bowel regimen (5) Thrombocytopenia: Plan: Improved on today's labs will continue to monitor Plan Continue DVT prevention with SCDs and TEDs at this time Admission and Anticipated Discharge Date Admission Date: April 09, 2022 Supervising Physician Co-Signing Physician Notes I did not personally see or examine this patient. I reviewed all posadas points and charts with TOMMY Charles and agree with all assessment and plan except as described here: no changes Subjective Patient is awake in bed She had lumbar laminotomy L5-S1 on the left with excision of the herniated free fragments this morning Patient states she has some mild discomfort bu denies any nausea or vomiting. She was laying in bed eating cereal post operatively. Review of Systems Constitutional: no fever, no chills, no anorexia, no weight loss and no weight gain Respiratory: no cough, no chest congestion and no dyspnea Cardiovascular: no chest pain, no dyspnea, no syncope and no edema Gastrointestinal: no abdominal pain, no nausea and no vomiting Genitourinary: no dysuria, no difficulty urinating and no flank pain mild stress urinary incontinence Musculoskeletal: + back pain, + radicular pain and + problem reported; no neck pain, no loss of height, no swelling and no muscle atrophy Integumentary: no rash, no lesions and no new lesions Neurologic: + loss of sensation, + numbness and + radiating pain; no falls and no paralysis Psychiatric: no hopelessness, no change in appetite and no suicidal ideation Hematologic / Lymphatic: no easy bleeding, no coagulopathy, no lymphadenopathy and no unexplained weight loss Physical Exam Constitutional: WD/WN, vitals as above Neck: trachea midline, no thyromegaly Respiratory: normal respiratory effort, lungs clear to auscultation Cardiovascular: RRR, no murmur, no edema Gastrointestinal (Abdomen): normal bowel sounds, soft, nontender, no hepatosplenomegaly Skin: no rashes, warm and dry Results & Data Results & Data ([facility]) Vital Signs (Past 12 Hours) Vital Signs Temp Pulse Resp BP BP Pulse Ox O2 Del Method 04/10/22 07:07 36.5 C 89 18 106/78 100 Room Air 04/10/22 05:56 36.6 C 81 18 124/81 97 Room Air Diagnostic Findings Spine X-Ray 04/10/22 00:00 FL spine 1V any level CLINICAL HISTORY: L5-S1 LEFT LAMI TECHNIQUE: 1 views were obtained with the C-arm in the OR with the above procedure. Total fluoroscopy time was 5.1 seconds. Radiation dose was 4.35 mGy. Comparison: Comparison is made to MRI lumbar spine 04/07/2022 FINDINGS/IMPRESSION: Intraoperative images were obtained of L5-S1 left laminectomy. Please correlate with intraoperative fluoroscopy and operative report. ACT 112: Negative or not required by law. Electronically signed by: Yung Garcia M.D. 04/10/2022 1:38 PM PG Care Time/CCT Total # of Minutes Spent Total Time Spent with Patient: Total time spent is greater than 50% in coordination of care (as documented) at patient's floor/unit and/or counseling patient: Coding Level of Care Code 75454 SUB INP/OBS CARE Diagnoses Lumbar disc herniation with radiculopathy M51.16 Lower back pain M54.42 Back pain laterality: left Chronicity: acute Sciatica laterality: sciatica of left side Sciatica presence: with sciatica Inflammatory arthritis M19.90 Irritable bowel K58.9 Thrombocytopenia D69.6 (1) Lower back pain Back pain laterality: left Chronicity: acute Sciatica laterality: sciatica of left side Sciatica presence: with sciatica Qualified Code(s): M54.42 - Lumbago with sciatica, left side
[2022-04-10] MEDS ORDERED: FLOSEAL HEMOSTATIC MATRIX 10ML TOP ONE (08:15)
[2022-04-10] MEDS ORDERED: ePHEDrine sulfate 50 MG/ML AMP ONE (08:24)
[2022-04-10] MEDS ORDERED: SUGAMMADEX SODIUM 200 MG/2 ML VIAL IV ONE (08:30)
--- NOTE | 2022-04-10 08:37 | Operative Report ---
Post Operative Report Pre & Post Diagnosis Operation Date: 04/10/22 07:45 Pre-Op Diagnosis: L5- S1 Lumbar disc herniation with radiculopathy Post-Op Diagnosis: L5- S1 Lumbar disc herniation with radiculopathy I identified the patient and participated in the time-out.: Yes Procedure Operation Date: 04/10/22 07:45 Actual Procedures Lumbar laminotomy L5-S1 on the left with excision of herniated free fragments Surgeon Eliezer Joya, Director Market Research Faith Kelly Estimated Blood Loss 10 Findings Consistent with Post-Op Diagnosis Specimens None Indications This is a [age]-year-old female presents with severe radiculopathy secondary to large disc herniation. After failing course of nonoperative care she is here for the above-mentioned procedure. Description of Procedure Patient met with identified informed sent obtained. Patient was then taken to the operative suite underwent a patient placed in a prone position the [place] table top Daron frame. All bony prominences well-padded eyes inspected to ensure no external pressure placed upon the. This point the lumbar spine was prepped and draped in a sterile fashion. The assistance of fluoroscopy identify the L5-S1 disc base and a small incision was created in the midline overlying his region. Sharp dissection with assistance of Bovie cautery performed down to and exposing the left interlaminar space at L5-S1. Self-retaining retractors placed. A small laminotomy was created and excised the lateral portion of ligamentum flavum to expose a severely compressed traversing S1 nerve root. Was able to mobilize this medially and identify several loose fragments of disc material. They were retrieved area was explored several times to ensure all fragments addressed. It was then closed with subcutaneous Vicryl and 4 Monocryl for final skin closure. Steri-Strip sterile dressings placed. Patient waken taken to recovery in stable condition. Please note Faith Kelly present out the entire procedure involved in patient positioning complex portion of the surgery and final skin closure. I attest to the content of the Intraoperative Record and any orders documented therein. Any exceptions are noted below.
[2022-04-10] MEDS: fentaNYL citrate 100 MCG/2 ML VIAL IV PRN ×3 (08:56→09:08)
[2022-04-10] MEDS ORDERED: HYDROmorphone INJ 0.5 MG/0.5 ML SYR IV PRN ×2 (09:22→10:01)
--- NOTE | 2022-04-10 09:37 | Anesthesiology Progress Note ---
Date of Service April 10, 2022 Anesthesia Post Procedure Vital Signs Vital Signs: Temp Pulse Pulse Resp BP BP Pulse Ox 04/10/22 09:05 80 22 116/78 99 04/10/22 09:35 77 22 108/76 100 04/10/22 09:25 76 22 112/72 100 04/10/22 09:15 82 17 110/57 L 100 04/10/22 08:55 87 24 121/76 100 04/10/22 08:48 36.2 C L 83 23 128/81 100 04/10/22 07:07 36.5 C 89 18 106/78 100 04/10/22 05:56 36.6 C 81 18 124/81 97 04/09/22 19:48 36.5 C 92 H 16 107/71 04/09/22 15:21 36.9 C 89 16 106/70 95 O2 Del Method O2 Flow Rate 04/10/22 09:05 Oxymask 2 04/10/22 09:35 Oxymask 2 04/10/22 09:25 Oxymask 2 04/10/22 09:15 Oxymask 2 04/10/22 08:55 Oxymask 5 04/10/22 08:48 Oxymask 5 04/10/22 07:07 Room Air 04/10/22 05:56 Room Air 04/09/22 19:48 Room Air 04/09/22 15:21 Room Air Pain Intensity Left Lower Back: Pain Intensity: 5 Transfer of Care Handoff Completed per policy Notes Mental Status: alert / awake / arousable Patient Amnestic to Procedure: Yes Nausea / Vomiting: adequately controlled Pain: adequately controlled Airway Patency, RR, SpO2: stable & adequate BP & HR: stable & adequate Hydration State: stable & adequate Neuraxial Anesthesia: was administered and sensory block is resolving Anesthetic Complications: no major complications apparent and Pt Satisfied with anesthetic care
[2022-04-10] MEDS ORDERED: DO NOT ADMINISTER FLU VACCINE PRN (10:01)
[2022-04-10] MEDS ORDERED: ACETAMINOPHEN 1,000 MG/100 ML VIAL IV PRN (10:01)
[2022-04-10] MEDS ORDERED: LORazepam 2 MG/1 ML VIAL IV PRN (10:01)
[2022-04-10] MEDS ORDERED: oxyCODONE HCL IR 5 MG TAB (IMMEDIATE RELEASE) PO PRN (10:01)
[2022-04-10] MEDS ORDERED: HYDROmorphone INJ 1 MG/ML SYRINGE IV PRN (10:01)
[2022-04-10] MEDS ORDERED: ACETAMINOPHEN 500 MG TAB PO PRN (10:01)
[2022-04-10] MEDS ORDERED: DO NOT ADMINISTER PNEUMOCOCCAL VACCINE PRN (10:01)
[2022-04-10] MEDS ORDERED: ONDANSETRON 4 MG OD TAB PO PRN (10:01)
[2022-04-10] MEDS ORDERED: SOD PHOSPHATE/SOD BIPHOSPHATE ENEMA 132 ML BTL PR PRN (10:01)
[2022-04-10] MEDS ORDERED: bisacodyL 10 MG SUPP PR PRN (10:01)
[2022-04-10] MEDS ORDERED: LORazepam 0.5 MG TAB PO PRN (10:01)
[2022-04-10] MEDS ORDERED: PROMETHAZINE HCL 12.5 MG in SODIUM CHLORIDE 0.9% 50 ML IV PRN (10:01)
[2022-04-10] MEDS ORDERED: diphenhydrAMINE Capsule 25 MG CAP PO PRN (10:01)
[2022-04-10] MEDS ORDERED: FAMOTIDINE 20 MG TAB PO PRN (10:01)
[2022-04-10] MEDS ORDERED: METOCLOPRAMIDE HCL INJ 5 MG/ML 2 ML VIAL IV PRN (10:01)
[2022-04-10] MEDS ORDERED: hydrOXYzine HCl 25 MG TAB PO PRN (10:01)
[2022-04-10] MEDS ORDERED: NALOXONE HCL 0.4 MG/1 ML VIAL/CARP IV PRN (10:01)
[2022-04-10] MEDS ORDERED: MAGNESIUM HYDROXIDE SUSP 30 ML UDC PO PRN (10:01)
[2022-04-10] MEDS ORDERED: ALUMINUM/MAGNESIUM SUSP 30 ML UDC PO PRN (10:01)
[2022-04-10] MEDS: ACETAMINOPHEN 500 MG TAB PO SCH (10:11)
[2022-04-10] MEDS: MELOXICAM 7.5 MG TAB PO SCH (10:12)
[2022-04-10] MEDS: dexAMETHasone 4 MG TAB PO SCH (10:12)
[2022-04-10] MEDS: DOCUSATE SODIUM 100 MG CAP PO SCH ×2 (11:12→21:35)
[2022-04-10] MEDS: traMADol HCL 50 MG TABLET PO PRN (11:12)
[2022-04-10] MEDS: CHOLECALCIFEROL 1,000 UNITS 25 MCG TAB PO SCH (11:13)
[2022-04-10] MEDS: GABAPENTIN 300 MG CAP PO SCH ×3 (11:13→21:35)
[2022-04-10] MEDS: FOLIC ACID 1 MG TAB PO SCH (11:13)
[2022-04-10] MEDS: PANTOprazole 40 MG TAB PO SCH (11:13)
[2022-04-10] MEDS: LACTATED RINGER'S 1,000 ML IV SCH ×2 (11:14→16:19)
[2022-04-10] MEDS: SENNA 8.6 MG TAB PO SCH (11:14)
[2022-04-10] MEDS: KETOROLAC TROMETHAMINE 15 MG/ML VIAL IV SCH ×3 (12:15→21:37)
--- NOTE | 2022-04-10 13:39 | Fluoroscopy Report ---
FL spine 1V any level CLINICAL HISTORY: L5-S1 LEFT LAMI TECHNIQUE: 1 views were obtained with the C-arm in the OR with the above procedure. Total fluoroscopy time was 5.1 seconds. Radiation dose was 4.35 mGy. Comparison: Comparison is made to MRI lumbar spine 04/07/2022 FINDINGS/IMPRESSION: Intraoperative images were obtained of L5-S1 left laminectomy. Please correlate with intraoperative fluoroscopy and operative report. ACT 112: Negative or not required by law. Electronically signed by: Yung Garcia M.D. 04/10/2022 1:38 PM
[2022-04-10] MEDS ORDERED: ALLERGY Noted to ORDERED Medication SCH (16:00)
[2022-04-10] MEDS: ceFAZolin 2000MG 2,000 MG/15 ML SYR IV SCH (16:19)
[2022-04-10] MEDS ORDERED: DOCUSATE SODIUM/SENNA 50/8.6MG TAB PO SCH (21:00)
[2022-04-10] MEDS: LIDOCAINE 5% 1 PATCH TD SCH (21:30)
[2022-04-11] MEDS: ceFAZolin 2000MG 2,000 MG/15 ML SYR IV SCH (00:17)
[2022-04-11] MEDS: traMADol HCL 50 MG TABLET PO PRN ×3 (00:23→13:50)
[2022-04-11] MEDS: KETOROLAC TROMETHAMINE 15 MG/ML VIAL IV SCH (04:26)
[2022-04-11] MEDS: POLYETHYLENE (MIRALAX) 17 GM PACK PO SCH ×2 (05:51→11:46)
[2022-04-11] MEDS: LACTATED RINGER'S 1,000 ML IV SCH (07:05)
--- NOTE | 2022-04-11 07:38 | Discharge Summary ---
Date of Service April 11, 2022 Admission HPI Per Admitting Provider 42-year-old female with history of chronic back discomfort who presents with a flareup of her back pain. Its mostly related in her lower back it can at times radiate to her foot mostly on the lateral edge most of the time it stays in the upper leg. She is attempted to quell her pain emergency department with with little success. Her pain is definitely not reproducible with straight leg raising and has variable somatic components. She reportedly comes with a previous disc herniation at L3-4 L4-[address] scan in the emergency department showed degenerative disc disease L5-S1. She reportedly has inflammatory art hritis and thinks methotrexate weekly and sees a data management engineer in [place]. She states that the morphine did not work but the Dilaudid was better. Admission Exam Per Admitting Provider The patient appeared well nourished and normally developed. Vital signs as documented. Head exam is normocephalic atraumatic Neck is without JVD, thyromegaly, or carotid bruits. Lungs are clear to auscultation, no focal loss of breath sounds Cardiac exam, Rhythm is regular.. No murmurs, rubs or gallops. Abdominal exam reveals normal bowel sounds, soft non tender, no masses Extremities are nonedematous and both pedal pulses are present Reproducible point tenderness in the lumbar spine mostly left side chest was tenderness to the left calf Neurologic exam is alert and oriented, no focal loss of strength or sensation No pain with straight leg raising strength is 5/5 and equal bilaterally no neurological deficits Skin is without bruises or rashes Psychologically is without concerns for anxiety or depression.. Principal Diagnosis Lumbar Disc Herniation with radiculopathy Inflammatory arthritis Discharge Exam Constitutional WD/WN, vitals as above Neck trachea midline, no thyromegaly Respiratory normal respiratory effort, lungs clear to auscultation Cardiovascular RRR, no murmur, no edema Gastrointestinal (Abdomen) normal bowel sounds, soft, nontender, no hepatosplenomegaly Skin no rashes, warm and dry Psychiatric A+Ox3, euthymic affect Patient is motivated to go home but also nervous and awaiting PT/OT evaluation Discharge Data Allergies Allergy/AdvReac Type Severity Reaction Status Date / Time amoxicillin Allergy Intermediate RASH/VOMITI Verified 04/07/22 17:34 NG ciprofloxacin Allergy Intermediate Rash Verified 04/07/22 17:34 sulfamethoxazole Allergy Intermediate Rash Verified 04/07/22 17:34 [From Bactrim] trimethoprim [From Bactrim] Allergy Intermediate Rash Verified 04/07/22 17:34 Consultations 04/07/22 18:55 ED Decision to Admit Stat 04/08/22 10:11 Consult Orthopedic Surgery Routine Procedures Performed Operation Date: 04/10/22 07:45 Actual Procedures p L5-S1 Left Lumbar Laminectomy - Eliezer Joya DO Ordered Studies 04/07/22 14:54 CT lumbar spine wo con Stat 04/07/22 17:29 MR lumbar spine wo con Stat 04/10/22 FL spine 1V any level Routine Hospital Course (1) Lumbar disc herniation with radiculopathy: Surgery 04/10/22 - Laminectomy L5-S1 on the Left with excision of herniated free fragments Patient states her pain is controlled She states last night she did 4 laps in the hallway and after the 3rd lap she felt uncomfortable She states she was able to sleep well last night She denies any urine or bowel sxs She has not had a BM but had a dose of miralax and feels it will happen soon (2) Lower back pain: Patient had radicular lower back pain and MRI revealed lumbar disc herniation with severe narrowing of the left lateral recess with posterior displacement of the descending left S1 nerve root Orthopedic surgery consulted taken to the OR 04/10/22 Continue pain medications (3) Inflammatory arthritis: Follows with data management engineer in [place] Methotrexate on hold (last dose was 04/05/22) Takes Daily Meloxicam and tramadol as needed (4) Irritable bowel: Patient has a hx of IBS She is currently tolerating regular diet Has Colace BID, Senokot and miralax as needed Discussed good bowel regimen (5) Thrombocytopenia: Improved on today's labs will continue to monitor Plan Continue DVT prevention with SCDs and TEDs at this time encourage Up and OOB with walking Total Time Total Time Spent Total Time Spent (In Minutes): 40 Discharge Plan Discharge Items Patient Disposition: Home - Self-Care Reason For Visit: INTRACTABLE BACK PAIN Discharge Diagnosis: Lumbar disc herniation with radiculopathy Condition on Discharge: Good Activity: As commented below Weightbearing: Full weightbearing Non-emergency contact: Primary Care Provider and Specialist Call non-emergency contact if: you have any medication questions Follow-up/Referrals: Eliezer Joya DO [Surgeon] - 04/29/22 10:00 am Talita Morrell DO [Primary Care Provider] - Diet: Regular Addtl Attending Provider Instructions: You were admitted with low back pain and had MRI revealing lumbar disc herniation with severe narrowing of the left lateral recess with posterior displacement of the descending left S1 nerve root You were taken for a Laminectomy L5-S1 on the left with excision of herniated fragments with Dr Joya on 04/10/22 Ortho instructions below. Prescriptions were sent to your pharmacy by orthopedist for pain medications. Addtl E Commerce Marketing Manager Provider Instructions: ACTIVITY RECOMMENDATIONS: SELF CARE INSTRUCTIONS AFTER A LAMINECTOMY 1. No prolonged sitting (less than 30 minutes for the first 3 weeks after surgery). 2. No bending, lifting more than 5 pounds, or twisting (roll like a log when turning in bed). 3. You may shower 3 days after surgery if no drainage from wound. Thoroughly dry wound. Do not soak in the tub. 4. Please walk as much as you can for exercise. Gradually increase the distance that you walk as your endurance increases. 5. You may drive in 7-10 days if you are comfortable and no longer requiring pain medications. SPECIAL CARE INSTRUCTIONS: VERY IMPORTANT TO READ AND REVIEW A. Your surgical incision has been closed with a cosmetic suture under the skin that will dissolve in about 6 weeks. In 14 days, you can use a pair of clean scissors and cut the suture that is left outside of the skin at the ends of your incision. B. Complications are uncommon, but please contact us if you have any signs or symptoms of: 1. wound infection (fever higher than 102.5 degrees F, redness, separation of wound, drainage, or increasing pain from the incision) 2. blood clots in legs (pain, swelling, redness and warmth in legs) 3. urinary tract infection (fever higher than 102.5 degrees, burning upon urination or increased frequency of urination) 4. nerve problems (inability to walk on your toes or heels, numbness, loss of bowel or bladder control) 5. any other symptoms that concern you. C. Please call the office at if you have any concerns or questions about your operation or recovery. MANAGING PAIN AFTER SPINAL SURGERY 1. Narcotic medication is intended for short-term use and will be provided for surgical pain. Surgical pain usually lasts for a period of 4-6 weeks. Narcotic medication includes Percocet, Vicodin, Darvocet, Tylenol #3 or Lortab. 2. Longer-term pain is more appropriately treated with non-narcotic medication such as Tylenol ES. 3. Muscle spasm is not appropriately treated with narcotics. Muscle relaxers such as Soma, Flexeril or Skelaxin can be used along with Tylenol ES. 4. Remember that we all live with some "aches and pains". This is not unusual or uncommon after an injury or as we get older. 5. We will provide appropriate medication within the normal guidelines of their prescribed use. We will also be very cautious and aware of potential abuse and extended duration of patients' medication needs. 6. Please allow 2-3 days to process refills. Prescriptions will not be mailed but must be picked up at the office. FOLLOW UP VISIT: Keep your scheduled follow-up appointment. Any questions, please call the office at . Pending Studies at Discharge: No Stand-Alone Forms: [facility] Medications and DC Order Prescriptions: New tramadol 50 mg tablet 50 mg PO Q6H PRN (Reason: pain, moderate) Qty: 30 0RF oxycodone 5 mg tablet 5 mg PO Q6H PRN (Reason: pain, severe) Qty: 20 0RF Continued cyclobenzaprine 10 mg tablet 10 mg PO TID PRN (Reason: MUSCLE SPASMS) meloxicam 7.5 mg tablet 7.5 mg PO DAILY methotrexate sodium 2.5 mg tablet See Rx Instructions .ROUTE .COMPLEX Rx Instructions: TAKES 3 TABS FRIDAY AM, THEN 4 TABS FRIDAY PM ONLY pantoprazole 40 mg tablet,delayed release (DR/EC) 40 mg PO QAM docusate sodium [Stool Softener] 100 mg Capsule 300 mg PO BID gabapentin 300 mg Capsule 300 mg PO TID folic acid 1 mg tablet 1 mg PO DAILY cholecalciferol (vitamin D3) [Vitamin D3] 50 mcg (2,000 unit) Tablet 2,000 unit PO DAILY estradiol [Malinda] 0.1 mg/24 hr patch semiweekly 1 topical Rx Instructions: CHANGES ON FRI & FRI Discharge Orders: Discharge Order (Routine); Ordered 04/11/22 Ordered By: Juliette Charles Admission Data Admit Date/Time: 04/09/22 08:32 Attending Provider: Leonila Burger Admit Provider: Steve De La Vega Primary Care Provider: Talita Morrell Other Providers: Steve De La Vega ; Eliezer Joya Other Interventions: Discharge Summary Assessment (RN) Last Done: 04/11/22 14:45 Supervising Physician Co-Signing Physician Notes PA Supervision Note: I personally saw and examined the patient. I verified all posadas points and agree with TOMMY Charles with the following exceptions and/or additions: Subjective: 42 yo F with L5-S1 disc herniation presented with worsening back pain and radiculopathy, noted on CT imaging to have caudally migrating fragment and is now s/p Laminectomy L5-S1 on the Left with excision of herniated free fragments. Doing well post surgery, some pain improved with prn pain medications. Ambulating well and did well with PT. Physical exam: Vitals reviewed Gen: Alert and oriented, NAD CV: RRR no mgr nl S1S2 Pulm: CTAB no wcr Ext: no edema, 2+ DP pulses Skin: no rashes, warm/dry; dressing on back clean and dry Neuro: No focal neurologic deficits Labs, Rads, and ECG reviewed Assessment and Plan: Lumbar disc herniation: Presented with worsening of crhonic back pain. MRI revealed lumbar disc herniation with severe narrowing of the left lateral recess with posterior displacement of the descending left S1 nerve root, is now s/p L5-S1 left laminectomy with excision of those fragments on 04/10/22. Pain medications as ordered by Ortho Spine prn, with follow up as scheduled with Dr. Joya. Inflammatory arthritis: Can resume methotrexate after discussing with her Gas Turbine Mechanic. Meloxicam and tramadol (chronic medications) as needed. IBS-C: Continue Colace, Senokot, Miralax. Had BM before discharge. Thrombocytopenia: Plts 109 on admission however increased to 196 on day of discharge. Can follow up CBC with PCP. Otherwise see above. Coding Level of Care Code HOSP INP/OBS DISCH >30 MIN Diagnoses Lumbar disc herniation with radiculopathy M51.16 Lower back pain M54.42 Back pain laterality: left Chronicity: acute Sciatica laterality: sciatica of left side Sciatica presence: with sciatica Inflammatory arthritis M19.90 Irritable bowel K58.9 Thrombocytopenia D69.6
[2022-04-11] MEDS: DOCUSATE SODIUM 100 MG CAP PO SCH (08:18)
[2022-04-11] MEDS: PANTOprazole 40 MG TAB PO SCH (08:18)
[2022-04-11] MEDS: SENNA 8.6 MG TAB PO SCH (08:19)
[2022-04-11] MEDS: GABAPENTIN 300 MG CAP PO SCH ×2 (08:19→13:49)
[2022-04-11] MEDS: FOLIC ACID 1 MG TAB PO SCH (08:19)
[2022-04-11] MEDS: CHOLECALCIFEROL 1,000 UNITS 25 MCG TAB PO SCH (08:20)
== END 2022-04-11 15:37 | disposition home or self-care (01) | DRG 520 ==
LOC: ED 14:08 → 3W 14:08 → SUATTDRO 18:58 → 3W 19:42